=== PATIENT | female | born 1985 | race Caucasian/White ===

== ENCOUNTER 2020-04-24 19:46 | Emergency (ER) | payer MEDICAID ==
[~2020-04-24] VITALS: Ht 157.5 cm; Wt 53.1 kg
--- NOTE | 2020-04-24 20:07 | NUR ---
PT RECENTLY RELOCATD TO [place] FROM [facility], HAS BEEN LIVING IN [facility] FOR LAST TWO MONTHS, LEFT 2 DAYS AGO WITH HER BOYFRIEND AND HAS BEEN DRINKING SINCE. CONCERNED ABOUT ETOH WITHDRAWL. CIWA NEGATIVE AT THIS TIME. HX POLYSUBSTANCE ABUSE
[2020-04-24] MEDS ORDERED: GABA600T7 PO (20:13)
[2020-04-24] MEDS ORDERED: SERT100T PO (20:13)
[2020-04-24] MEDS ORDERED: LEVO125T5 PO (20:13)
[2020-04-24] MEDS ORDERED: OLAN7.5T5 PO (20:13)
[2020-04-24] MEDS ORDERED: NALT50TA PO (20:13)
[2020-04-24] MEDS ORDERED: ONDANSETRON 2MG/ML, 2ML ONE (20:42)
[2020-04-24] MEDS ORDERED: SODIUM CHLORIDE FLUSH 10ML SYR IVF ONE (21:00)
[2020-04-24] MEDS ORDERED: IBUPROFEN 600 MG TABLET PO ONE (21:00)
[2020-04-24] MEDS ORDERED: ACETAMINOPHEN 325 MG TABLET PO ONE (21:00)
[2020-04-24] MEDS ORDERED: SODIUM CHLORIDE 0.9% 1,000ML IVBOLUS ONE (21:00)
[2020-04-24] MEDS ORDERED: ONDANSETRON 2MG/ML, 2ML IVPush ONE (21:00)
[2020-04-24 21:02] LABS: BASOPHILS # (AUTO) 0.02 x10^3/uL (0-0.1); BASOPHILS % (AUTO) 0 % (0-1); EOSINOPHILS # (AUTO) 0.09 x10^3/uL (0-0.4); EOSINOPHILS % (AUTO) 2 % (1-7); LYMPHOCYTES # (AUTO) 1.35 x10^3/uL (1-3.4); LYMPHOCYTES % (AUTO) 24 % (22-44); MD NO; MEAN CORPUSCULAR HEMOGLOBIN 30.7 pg (27.0-34.8); MEAN CORPUSCULAR VOLUME 93.1 fL (80-100); MEAN PLATELET VOLUME 7.5 fL (7.4-10.4); MONOCYTES # (AUTO) 0.29 x10^3/uL (0.2-0.8); MONOCYTES % (AUTO) 5 % (2-9); NEUTROPHILS # (AUTO) 3.81 x10^3/uL (1.8-6.8); NEUTROPHILS % (AUTO) 69 % (42-75); PLATELET COUNT 217 x10^3/uL (130-400); RED BLOOD COUNT 4.44 x10^6/uL (3.82-5.3)
[2020-04-24 21:12] LABS: ALANINE AMINOTRANSFERASE 26 U/L (12-78); ALBUMIN 4.1 g/dL (3.4-5.0); ANION GAP 6 mmol/L (5-15); CALCIUM 8.6 mg/dL (8.5-10.1); CHLORIDE 115 mmol/L (98-107); CREATININE 0.76 mg/dL (0.55-1.02)
[2020-04-24 21:17] LABS: ALKALINE PHOSPHATASE 60 U/L (45-117); BILIRUBIN,TOTAL 0.3 mg/dL (0.2-1.0); TOTAL PROTEIN 7.5 g/dL (6.4-8.2)
--- NOTE | 2020-04-24 22:19 | NUR ---
UP TO BATHROOM, SPECIMEN COLLECTED AND SENT. SWEET SOMEWHAT LOST SOUL. NEGATIVE CIWA AT THIS TIME
[2020-04-24 22:32] LABS: MICROSCOPIC NOT IND
--- NOTE | 2020-04-25 00:12 | NUR ---
SLEEPING QUIETLY, RESP RATE EVEN AND REGULAR.
--- NOTE | 2020-04-25 03:00 | NUR ---
SLEEPING QUIETLY, RESP RATE EVEN AND REG. AWAIT SOBRIETY FOR SAFE DISCHARGE.
[2020-04-25 05:38] VITALS: BP 97/59
--- NOTE | 2020-04-25 06:01 | NUR ---
PT GIVEN CAB VOUCHER BACK TO ADDRESS REQUESTED, STATES THAT HER CAR AND THINGS ARE THERE AND THAT SHE HAS ALREADY CONTACTED THE [facility] AND THEY ARE WILLING TO TAKE HER BACK TODAY
== END 2020-04-25 06:05 | disposition home or self-care (01) ==
LOC: ED 22:38
DX: F10.129 Alcohol abuse with intoxication, unspecified (principal); R11.2 Nausea with vomiting, unspecified; R51 Headache; F17.210 Nicotine dependence, cigarettes, uncomplicated; Y90.0 Blood alcohol level of less than 20 mg/100 ml
CPT/HCPCS: 36415; 80053; 80307; 81003; 84703; 85025; 96361; 96374; 99285; J2405; J7030

== ENCOUNTER 2020-07-16 19:29 | Emergency (ER) | payer MEDICAID ==
[~2020-07-16] VITALS: Ht 157.5 cm; Wt 68.0 kg
[~2020-07-16 19:29] MED LIST: GABA600T7 PO; LEVO125T5 PO; NALT50TA PO; OLAN7.5T5 PO; SERT100T PO
--- NOTE | 2020-07-16 19:40 | NUR ---
[facility]RI[address] [address]. PT STATES SHE IS TAKING ANTIBUSE AND DRANK 1 "STRONG BEER" THIS EVENING. NOW WITH NAUSEA. DENIES VOMITTING.
[2020-07-16] MEDS ORDERED: ONDANSETRON 2MG/ML, 2ML ONE (20:13)
[2020-07-16] MEDS ORDERED: SODIUM CHLORIDE FLUSH 10ML SYR IVF ONE (20:30)
[2020-07-16] MEDS ORDERED: ONDANSETRON 2MG/ML, 2ML IVPush ONE (20:30)
[2020-07-16] MEDS ORDERED: SODIUM CHLORIDE 0.9% 1,000ML IVBOLUS ONE (20:30)
--- NOTE | 2020-07-16 20:30 | NUR ---
PIV PLACED. LABS DRAWN. IVF INFUSING. PT LAYING ON GURNEY. NO NEEDS AT THIS TIME.
[2020-07-16 20:39] LABS: BASOPHILS % (AUTO) 0 % (0-1); EOSINOPHILS % (AUTO) 0 % (1-7); LYMPHOCYTES % (AUTO) 14 % (22-44); MEAN CORPUSCULAR HEMOGLOBIN 31.3 pg (27.0-34.8); MEAN CORPUSCULAR HGB CONC 34.2 g/dL (32.4-35.8); MEAN PLATELET VOLUME 7.3 fL (7.4-10.4); MONOCYTES % (AUTO) 7 % (2-9); NEUTROPHILS % (AUTO) 79 % (42-75); PLATELET COUNT 203 x10^3/uL (130-400); RED BLOOD COUNT 4.22 x10^6/uL (3.82-5.3); RED CELL DISTRIBUTION WIDTH 13.7 % (9.6-15.2)
[2020-07-16 20:47] LABS: MD NO
[2020-07-16 20:52] LABS: ALANINE AMINOTRANSFERASE 36 U/L (12-78); ALKALINE PHOSPHATASE 87 U/L (45-117); ANION GAP 6 mmol/L (5-15); BILIRUBIN,TOTAL 0.2 mg/dL (0.2-1.0); CALCIUM 8.5 mg/dL (8.5-10.1); CHLORIDE 108 mmol/L (98-107); CREATININE 0.63 mg/dL (0.55-1.02); TOTAL PROTEIN 6.5 g/dL (6.4-8.2)
[2020-07-16 20:53] LABS: ALBUMIN 3.6 g/dL (3.4-5.0)
[2020-07-16] MEDS ORDERED: POTASSIUM CHLORIDE 20 MEQ TAB.ER.PRT PO ONE (21:30)
[2020-07-16] MEDS ORDERED: POTASSIUM CHLORIDE 20 MEQ TAB.ER.PRT ONE (21:40)
[2020-07-16 21:45] VITALS: BP 110/47
--- NOTE | 2020-07-16 21:54 | NUR ---
PT REPORT FEELING BETTER AFTER NAUSEA MEDS. PT WAS ABLE TO TOLERATE PO FLUIDS WITH PO MEDS.
[2020-07-16] MEDS ORDERED: PROMETHAZINE 25 MG/ML, 1ML ONE (22:17)
[2020-07-16] MEDS ORDERED: PROMETHAZINE 25 MG/ML, 1ML IM ONE (22:30)
== END 2020-07-16 23:02 | disposition home or self-care (01) ==
LOC: ED 22:00
DX: R11.0 Nausea (principal); T50.6X5A Adverse effect of antidotes and chelating agents, initial encounter; R94.31 Abnormal electrocardiogram [ECG] [EKG]; Y92.89 Other specified places as the place of occurrence of the external cause
CPT/HCPCS: 36415; 80053; 80307; 84703; 85025; 93005; 96372; 96374; 99284; J2405; J2550; J7030